=== PATIENT | male | born 1960 | race Hispanic/Latino ===

== ENCOUNTER 2017-04-13 22:08 | Emergency (ER) | payer BC ==
[2017-04-13 22:56] VITALS: BP 122/75; PULSE 78; RESP 17; TEMP 98.3; O2SAT 96
--- NOTE | 2017-04-13 23:57 | ED PDOC ---
HPI: Trauma/Fall - HPI Time Seen by Provider: 04/13/17 23:42 Chief Complaint (Nursing): Trauma Chief Complaint (Provider): fall History Per: Patient History/Exam Limitations: no limitations Injury Occurred (Timing): Hours Ago: Additional History Per: Patient Additional Complaint(s): 56 y/o male presents for eval of fall one hour prior to arrival. Patient states he was throwing garbage out at work, and he stepped up on some cinder blocks near the dumpster and one of the blocks slipped, causing him to fall and land on right side. He is complaining of pain to right flank, right lower ribs. Denies head injury, LOC, dizziness, nausea/vomiting, abdominal pain, dysuria, hematuria. Past Medical History Reviewed: Historical Data, Nursing Documentation, Vital Signs Vital Signs: Last Vital Signs Temp 98.3 F 04/13/17 22:53 Pulse 78 04/13/17 22:53 Resp 17 04/13/17 22:53 BP 122/75 04/13/17 22:53 Pulse Ox 96 04/13/17 22:53 - Medical History PMH: No Chronic Diseases - Surgical History Surgical History: No Surg Hx - Family History Family History: States: Unknown Family Hx - Home Medications Home Medications: Ambulatory Orders Medication Instructions Recorded Naproxen [Naprosyn] 500 mg PO Q12 PRN #20 tablet 04/14/17 oxyCODONE/Acetaminophen [Percocet 1 tab PO Q6 PRN #8 tab 04/14/17 5/325 mg Tab] - Allergies Allergies/Adverse Reactions: Allergies Allergy/AdvReac Type Severity Reaction Status Date / Time No Known Allergies Allergy Verified 04/13/17 22:56 Review of Systems ROS Statement: Except As Marked, All Systems Reviewed And Found Negative Gastrointestinal: Positive for: Abdominal Pain Musculoskeletal: Positive for: Back Pain Physical Exam - Reviewed Nursing Documentation Reviewed: Yes Vital Signs Reviewed: Yes - Physical Exam Appears: Positive for: Well, Non-toxic, No Acute Distress Head Exam: Positive for: ATRAUMATIC, NORMAL INSPECTION, NORMOCEPHALIC Skin: Positive for: Normal Color ENT: Positive for: Normal ENT Inspection Cardiovascular/Chest: Positive for: Regular Rate, Rhythm Respiratory: Positive for: Normal Breath Sounds Gastrointestinal/Abdominal: Positive for: Bowel Sounds, Soft, Tenderness (right flank with + abrasions) Back: Positive for: Normal Inspection Extremity: Positive for: Normal ROM Neurologic/Psych: Positive for: Alert, Oriented - Laboratory Results Result Diagrams: 04/13/17 00:10 04/13/17 00:10 - ECG O2 Sat by Pulse Oximetry: 96 - Progress ED Course And Treament: labs, CT abd/pelvis IV contrast, IV toradol EXAM: CT Abdomen and Pelvis With Intravenous Contrast CLINICAL HISTORY: 56 years old, male; Pain and injury or trauma; Fall; Initial encounter; Blunt; Ruq; Abdominal pain; Flank; Right; Additional info: Fall, right flank pain TECHNIQUE: Axial computed tomography images of the abdomen and pelvis with intravenous contrast. This CT exam was performed using one or more of the following dose reduction techniques : automated exposure control, adjustment of the mA and/or kV according to patient size, and/ or use of iterative reconstruction technique. Coronal and sagittal reformatted images were created and reviewed. CONTRAST: 95 mL of [id number] administered intravenously. EXAM DATE/TIME: Exam ordered 04/13/2017 11:54 PM COMPARISON: No relevant prior studies available. FINDINGS: Lower thorax: Minimal dependent atelectasis in the lower lobes. ABDOMEN: Liver: There is mild fatty infiltration of the liver. Small probable hepatic cyst measuring 8 mm in the posterior right lobe. Gallbladder and bile ducts: The gallbladder is contracted with no stones. No ductal dilation. Pancreas: Unremarkable. No mass. No ductal dilation. Spleen: Unremarkable. No splenomegaly. Adrenals: Unremarkable. No mass. Kidneys and ureters: Small left peripelvic renal cysts. No hydronephrosis. Stomach and bowel: Unremarkable. No obstruction. No mucosal thickening. Appendix: A normal appendix is seen. PELVIS: Bladder: Unremarkable. No mass. Reproductive: Unremarkable as visualized. ABDOMEN and PELVIS: Intraperitoneal space: Unremarkable. No free air. No significant fluid collection. Bones/joints: Degenerative change of the lumbar spine with some facet arthropathy, particularly L4- L5. Fracture of the right 12th rib posteriorly. No dislocation. Soft tissues: Unremarkable. Vasculature: Unremarkable. No abdominal aortic aneurysm. Lymph nodes: Unremarkable. No enlarged lymph nodes. IMPRESSION: 1. Fracture of the right 12th rib posteriorly. 2. Degenerative spondylosis of the lumbar spine with some facet arthropathy. 3. Mild fatty infiltration of the liver. 4. Otherwise negative CT abdomen/pelvis. The organs are intact and there is no free fluid. No renal or ureteral calculi are evident and there is no evidence of obstructive uropathy Patient educated on findings, incentive spirometer given by respiratory therapist with instructions on use. Patient declines Boostrix IM at this time. Patient declines to have abrasions cleaned/bandaged. Rx Naproxen, Percocet provided. Patient advised on risk for potential addiction/dependance/overdose of narcotics ; advised to use as needed only for severe pain only, patient demonstrates full understanding. Follow up PMD 2-3 days. Return to ED for worsening/concerning symptoms. Disposition - Clinical Impression Clinical Impression: Rib fracture, Flank abrasion - Disposition Disposition: Routine/Home Disposition Time: 02:30 Condition: STABLE Prescriptions: Naproxen [Naprosyn] 500 mg PO Q12 PRN #20 tablet PRN Reason: Pain, Moderate (4-7) oxyCODONE/Acetaminophen [Percocet 5/325 mg Tab] 1 tab PO Q6 PRN #8 tab PRN Reason: Pain, Severe (8-10) Instructions: Rib Fracture (ED), Abrasion (ED) Forms: [facility] ED School/Work Excuse
[2017-04-14 00:14] LABS: BASO # 0.1 K/uL (0.0-0.2); BASO % 0.9 % (0.0-2.0); EOS # 0.1 K/uL (0.0-0.7); EOS % 1.3 % (0.0-4.0); HEMATOCRIT 40.8 % (35.0-51.0); LYMPH # 2.5 K/uL (1.0-4.3); LYMPH % 28.2 % (20.0-40.0); MEAN CELL VOLUME 88.9 fl (80.0-94.0); MEAN CORPUSCULAR HEMOGLOBIN 30.5 pg (27.0-31.0); MEAN CORPUSCULAR HGB CONC 34.3 g/dL (33.0-37.0); MEAN PLATELET VOLUME 6.4 fl (7.2-11.7); MONO # 0.6 K/uL (0.0-0.8); MONO % 7.3 % (0.0-10.0); NEUT # 5.4 K/uL (1.8-7.0); NEUT % 62.3 % (50.0-75.0); RED CELL DISTRIBUTION WIDTH 13.1 % (11.5-14.5); WHITE BLOOD COUNT 8.7 K/uL (4.8-10.8)
[2017-04-14 00:19] LABS: RBC URINE 3 /hpf (0-3); URINE BILIRUBIN NEGATIVE (NEGATIVE); URINE BLOOD NEGATIVE (NEGATIVE); URINE COLOR YELLOW (YELLOW); URINE GLUCOSE (UA) NEG (Normal); URINE KETONE NEGATIVE (NEGATIVE); URINE LEUKOCYTE ESTERASE NEG Leu/uL (Negative); URINE PROTEIN NEGATIVE (NEGATIVE); URINE UROBILINOGEN 0.2-1.0 mg/dL (0.2-1.0); WBC URINE < 1 /hpf (0-5)
[2017-04-14 00:25] LABS: ALB/GLOB RATIO 1.5 (1.0-2.1); ALKALINE PHOSPHATASE 62 U/L (38-126); ALT/SGPT 46 U/L (21-72); AST/SGOT 36 U/L (17-59); BILIRUBIN,TOTAL 0.3 mg/dl (0.2-1.3); BLOOD UREA NITROGEN 19 mg/dl (9-20); CALCIUM 9.3 mg/dL (8.4-10.2); CARBON DIOXIDE 27 mmol/L (22-30); CHLORIDE 102 mmol/L (98-107); GFR AFRICAN-AMERICAN > 60; GLUCOSE,RANDOM 100 mg/dL (75-110); POTASSIUM 4.1 MMOL/L (3.6-5.0); SODIUM 139 mmol/l (132-148); TOTAL PROTEIN 7.2 G/DL (6.3-8.2)
[2017-04-14] MEDS ORDERED: Iohexol 300 100 ML IJ ONE (01:34)
[2017-04-14] MEDS ORDERED: Sodium Chloride 0.9% 50 ML IV ONE (01:34)
--- NOTE | 2017-04-14 11:21 | CT ---
PROCEDURE: CT Abdomen and Pelvis with contrast HISTORY: fall, right flank pain COMPARISON: None. TECHNIQUE: Contrast dose: 95 cc Omnipaque 300 Radiation dose: Total exam DLP = 766.52 mGy-cm. This CT exam was performed using one or more of the following dose reduction techniques: Automated exposure control, adjustment of the mA and/or kV according to patient size, and/or use of iterative reconstruction technique. FINDINGS: LOWER THORAX: Unremarkable. LIVER: Hepatic steatosis. No focal masses. No intrahepatic bile duct dilatation or perihepatic ascites. Incidental finding(s): Sub cm cyst right hepatic lobe. GALLBLADDER AND BILE DUCTS: Unremarkable. PANCREAS: Unremarkable. No gross lesion or ductal dilatation. SPLEEN: Unremarkable. ADRENALS: Unremarkable. No mass. KIDNEYS AND URETERS: Unremarkable. No hydronephrosis. No solid mass. VASCULATURE: Unremarkable. No aortic aneurysm. BOWEL: Unremarkable. No obstruction. No gross mural thickening. APPENDIX: Normal appendix. PERITONEUM: Unremarkable. No free fluid. No free air. LYMPH NODES: Unremarkable. No enlarged lymph nodes. BLADDER: Unremarkable. REPRODUCTIVE: Unremarkable. BONES: Acute posterior right 12th rib fracture. No adjacent underlying pulmonary, pleural, hepatic abnormalities. OTHER FINDINGS: None. IMPRESSION: Acute posterior right 12th rib fracture. No adjacent intra-abdominal or intrathoracic abnormalities of consequence. Concordant results (preliminary interpretation) provided by [employer]. Procedure Completed: 01:48. Preliminary ([facility]) Report: Dictated and Authenticated: 02:06. Final Interpretation: 11:20. April 14, 2017.
== END 2017-04-14 02:44 | disposition home or self-care (01) ==
LOC: H.ER 22:08
DX: R10.11 Right upper quadrant pain (principal); S22.31XA Fracture of one rib, right side, initial encounter for closed fracture; W19.XXXA Unspecified fall, initial encounter; Y99.0 Civilian activity done for income or pay; K76.0 Fatty (change of) liver, not elsewhere classified; T14.8 Other injury of unspecified body region
CPT/HCPCS: 74177; 80053; 81003; 85025; 96374; 99283; J1885; Q9967

== ENCOUNTER 2018-10-03 19:12 | Emergency (ER) | payer BC, OTHER ==
[2018-10-03 19:52] VITALS: BP 139/88; PULSE 85; RESP 18; TEMP 99.4; O2SAT 99
[2018-10-03] MEDS ORDERED: Naproxen 500 MG TAB PO STA (21:03)
[2018-10-03] MEDS ORDERED: Naproxen 500 MG TAB PO ONE (21:16)
--- NOTE | 2018-10-03 21:24 | ED PDOC ---
HPI: Back Time Seen by Provider: 10/03/18 19:53 Chief Complaint (Nursing): Back Pain Chief Complaint (Provider): Rib pain History Per: Patient History/Exam Limitations: no limitations Onset/Duration Of Symptoms: Hrs (today) Additional Complaint(s): Rupert Kwan, a 57 year old male with no significant past medical history, presents to the ED with rib pain. Patient states he tripped and fell hitting his left ribs. He reports localized pain and denies shortness of breath, trouble breathing, head injury or taking medication. No further medical complaints. Past Medical History Reviewed: Historical Data, Nursing Documentation, Vital Signs Vital Signs: Last Vital Signs Temp 99.4 F 10/03/18 19:49 Pulse 85 10/03/18 19:49 Resp 18 10/03/18 19:49 BP 139/88 10/03/18 19:49 Pulse Ox 99 10/03/18 19:49 - Family History Family History: States: Unknown Family Hx - Home Medications Home Medications: Ambulatory Orders Medication Instructions Recorded Naproxen [Naprosyn] 500 mg PO Q12 PRN #20 tablet 04/14/17 oxyCODONE/Acetaminophen [Percocet 1 tab PO Q6 PRN #8 tab 04/14/17 5/325 mg Tab] Naproxen [Naprosyn] 500 mg PO BID PRN #20 tablet 10/03/18 traMADol [Ultram] 50 mg PO Q6H PRN #15 tab 10/03/18 - Allergies Allergies/Adverse Reactions: Allergies Allergy/AdvReac Type Severity Reaction Status Date / Time No Known Allergies Allergy Verified 10/03/18 19:52 Review of Systems ROS Statement: Except As Marked, All Systems Reviewed And Found Negative Constitutional: Negative for: Other (head injury) Cardiovascular: Positive for: Chest Pain (left ribs) Respiratory: Negative for: Shortness of Breath, Other (trouble breathing) Physical Exam - Reviewed Nursing Documentation Reviewed: Yes Vital Signs Reviewed: Yes - Physical Exam Appears: Positive for: Well, Non-toxic, No Acute Distress Head Exam: Positive for: ATRAUMATIC, NORMAL INSPECTION, NORMOCEPHALIC Skin: Positive for: Normal Color, Warm, DRY Eye Exam: Positive for: Normal appearance ENT: Positive for: Normal ENT Inspection Neck: Positive for: Normal Cardiovascular/Chest: Positive for: Regular Rate, Rhythm. Negative for: Bradycardia, Tachycardia Respiratory: Positive for: Normal Breath Sounds. Negative for: Accessory Muscle Use, Respiratory Distress Back: Positive for: Normal Inspection Extremity: Positive for: Normal ROM Neurologic/Psych: Positive for: Alert, Oriented - ECG O2 Sat by Pulse Oximetry: 99 (RA) Pulse Ox Interpretation: Normal Medical Decision Making Medical Decision Making: Time: 19:53 Initial Impression: Initial Plan: --Urine dipstick --Naproxen 500 mg --Radiology left ribs (+) right rib fx Scribe Attestation: Documented by Lisa Batista, acting as a scribe for Ruthann Rivas PA-C. Provider Scribe Attestation: All medical record entries made by the Scribe were at my direction and personally dictated by me. I have reviewed the chart and agree that the record accurately reflects my personal performance of the history, physical exam, medical decision making, and the department course for this patient. I have also personally directed, reviewed, and agree with the discharge instructions and disposition. Disposition - Clinical Impression Clinical Impression: Rib fracture - Patient ED Disposition Is Patient to be Admitted: No Counseled Patient/Family Regarding: Diagnosis, Need For Followup, Rx Given - Disposition Referrals: [facility] [Outside] Disposition: Routine/Home Disposition Time: 21:40 Condition: STABLE Prescriptions: Naproxen [Naprosyn] 500 mg PO BID PRN #20 tablet PRN Reason: Pain traMADol [Ultram] 50 mg PO Q6H PRN #15 tab PRN Reason: Pain Instructions: Rib Fractures in Adults Forms: [employer] (Kyrgyz)
--- NOTE | 2018-10-04 08:59 | RAD ---
Date of service: 10/03/2018 PROCEDURE: Radiographs of the Chest and Left Ribs. HISTORY: left chest pain pain after fall COMPARISON: None available. TECHNIQUE: Frontal radiograph of the chest and multiple oblique radiographs of the left ribs were obtained. FINDINGS: LEFT RIBS: No fracture or focal lesion visualized. LUNGS: Clear. PLEURA: No pneumothorax or pleural fluid. CARDIOVASCULAR: Normal cardiac size. No pulmonary vascular congestion. No aortic atherosclerotic calcification present OTHER FINDINGS: None. IMPRESSION: Unremarkable radiographs of the chest and left ribs. No left rib fracture.
== END 2018-10-03 22:02 | disposition home or self-care (01) ==
LOC: H.ER 19:12
DX: S22.43XA Multiple fractures of ribs, bilateral, initial encounter for closed fracture (principal); W01.0XXA Fall on same level from slipping, tripping and stumbling without subsequent striking against object, initial encounter; Y92.89 Other specified places as the place of occurrence of the external cause